=== PATIENT | female | born 1985 | race Hispanic/Latino ===

== ENCOUNTER 2017-06-24 09:05 | Emergency (ER) | payer MEDICAID ==
[2017-06-24 10:08] LABS: #Basophils 0.1 thou/uL (0.0-0.2); #Eosinphils 0.1 thou/uL (0.0-0.7); #Lymphocytes 1.9 thou/uL (1.20-3.40); #Monocytes 0.7 thou/uL (0.11-0.59); #Neutrophils 5.5 thou/uL (1.40-6.50); %Basophils 1.1 % (0.0-1.0); %Eosinophils 1.1 % (0.0-10.0); %Lymphocytes 23.1 % (21.0-51.0); %Monocytes 8.4 % (0.0-10.0); %Neutrophils 66.3 % (42.0-75.0); Hemoglobin 12.5 g/dL (12.0-16.0); Mean Corpuscular Hemoglobin 29.7 pg (27.0-31.0); Mean Corpuscular Volume 90.2 fl (81.0-99.0); Mean Platelet Volume 7.2 fL (7.4-10.4); Platelet Count 294 thou/uL (130-400); RBC Distribution Width 12.5 % (11.5-14.5); Red Blood Cell (RBC) Count 4.21 mill/uL (4.20-5.40); White Blood Cell (WBC) Count 8.3 thou/uL (4.8-10.8)
[2017-06-24 10:18] LABS: Bilirubin Negative (Negative); Blood, Urine Trace (Negative); Clarity Clear (Clear); Glucose, Urine (Dipstick) Negative (Negative); Leukocyte Negative (Negative); Nitrite Negative (Negative); Protein, Urine (Dipstick) Negative (Neg-Trace); Urobilinogen 0.2 mg/dL (0.2-1.0)
[2017-06-24 10:19] LABS: Specific Gravity, Urine 1.006 (1.002-1.036)
[2017-06-24 10:20] LABS: Bacteria/HPF 1+ HPF (None Seen); RBC/HPF 0-3 HPF (0-3); WBC/HPF 0-3 HPF (0-3)
[2017-06-24 10:21] LABS: Pregnancy Test - Urine (BHCG) Negative (Negative); Pregu Control Background? CLEAR/WHITE (CLR/WHITE); Pregu Control Bar Appear? YES (CONTROL BAR); Specific Gravity 1.006 (1.002-1.036)
[2017-06-24 10:25] LABS: ALT (SGPT) 19 U/L (8-55); AST (SGOT) 20 U/L (5-34); Albumin 3.9 g/dL (3.5-5.0); Alkaline Phosphatase 78 U/L (40-150); Anion Gap 16 mmol/L (10-20); BUN (Urea Nitrogen) 13 mg/dL (7.0-18.7); Bilirubin, Total 0.3 mg/dL (0.2-1.2); Calc. Creatinine Clearance 0 mL/min (70-130); Calcium 8.8 mg/dL (7.8-10.44); Carbon Dioxide 20 mmol/L (22-29); Chloride 107 mmol/L (98-107); Estimated GFR-MDRD 87; Globulin 3.7 g/dL (2.4-3.5); Lipase 42 U/L (8-78); Potassium 3.8 mmol/L (3.5-5.1); Protein, Total 7.6 g/dL (6.0-8.3); Sodium 139 mmol/L (136-145)
[2017-06-24 10:27] LABS: CKMB 0.8 ng/mL (0-6.6); Troponin I Less than 0.010 ng/mL (< 0.028)
[2017-06-24 10:31] LABS: Glucose 58 mg/dL (70-105)
--- NOTE | 2017-06-24 11:17 | RAD ---
PA AND LATERAL CHEST: History: Dyspnea. FINDINGS: Heart size is upper limits. Mediastinal structures are unremarkable. The lungs are clear of infiltrat es. No significant bony findings. IMPRESSION: Heart size upper limits of normal. POS: [facility]
--- NOTE | 2017-06-24 11:18 | CT ---
CT CERVICAL SPINE NONCONTRAST: History: Neck pain. Bilateral arm radiculopathy. FINDINGS: No comparison. Vertebral body height and alignment are maintained. Cervicothoracic junction is intact . No acute fracture or dislocation are apparent. No traumatic disc herniation is visible. IMPRESSION: 1. No acute osseous abnormalities are demonstrated. POS: [facility]
== END 2017-06-24 11:30 | disposition home or self-care (01) ==
LOC: MADERS 09:05
DX: E16.2 Hypoglycemia, unspecified (principal); F41.9 Anxiety disorder, unspecified; F32.9 Major depressive disorder, single episode, unspecified; F43.10 Post-traumatic stress disorder, unspecified; Z79.899 Other long term (current) drug therapy
CPT/HCPCS: 71046; 72125; 80053; 81003; 81015; 81025; 82553; 83690; 84484; 85025; 93005

== ENCOUNTER 2017-07-01 07:59 | Outpatient (CLI) | payer MEDICAID ==
--- NOTE | 2017-07-01 10:37 | ULT ---
PELVIC ULTRASOUND WITH DOPLER: (transabdominal, transvaginal, rowley scale, color flow and spectral Doppler) HISTORY: Pelvic pain, dyspareunia. FINDINGS: The uterus measures 7 x 5.4 x 4 cm without focal mass or endometrial fluid. The endometrium measures 9 mm in thickness. The right ovary measures 3 x 2 x 1.7 cm and the left ovary measures 2.6 x 1.8 x 2 cm. Flow is demons trated to both ovaries. No adnexal mass or free fluid in the cul-de-sac is seen. IMPRESSION: Normal exam. POS: [facility]
== END 2017-07-01 08:00 | disposition home or self-care (01) ==
LOC: MADULT 07:59
PROVIDERS: ATTEND Family Medicine
DX: R10.2 Pelvic and perineal pain (principal)
CPT/HCPCS: 76856

== ENCOUNTER 2017-07-25 13:09 | Emergency (ER) | payer MEDICAID ==
[2017-07-25] MEDS ORDERED: AMOXicillin 250 MG CAP ONE (13:44)
[2017-07-25] MEDS ORDERED: Benzonatate 100 MG CAP ONE (13:44)
[2017-07-25] MEDS ORDERED: predniSONE 20 MG TAB ONE (13:44)
== END 2017-07-25 14:10 | disposition home or self-care (01) ==
LOC: MADERS 13:09
DX: J20.9 Acute bronchitis, unspecified (principal); Z79.899 Other long term (current) drug therapy
CPT/HCPCS: 99283; J7506

== ENCOUNTER 2018-03-02 09:01 | Emergency (ER) | payer MEDICAID, SELFPAY ==
[~2018-03-02 09:01] MED LIST: Sodium Chloride 0.9% 1,000 ML BAG ONE
[2018-03-02] MEDS ORDERED: Ondansetron PF 4 MG/2 ML Vial ONE (09:46)
[2018-03-02 10:05] LABS: #Basophils 0.1 thou/uL (0.0-0.2); #Eosinphils 0.1 thou/uL (0.0-0.7); #Lymphocytes 2.4 thou/uL (1.20-3.40); #Monocytes 0.5 thou/uL (0.11-0.59); #Neutrophils 6.9 thou/uL (1.40-6.50); %Eosinophils 0.9 % (0.0-10.0); %Lymphocytes 24.3 % (21.0-51.0); %Monocytes 4.6 % (0.0-10.0); %Neutrophils 69.2 % (42.0-75.0); Mean Corpuscular HGB CONC 33.8 g/dL (32.0-36.0); Mean Corpuscular Hemoglobin 30.5 pg (27.0-31.0); Mean Corpuscular Volume 90.3 fL (78.0-98.0); Mean Platelet Volume 8.3 fL (7.4-10.4); Platelet Count 329 thou/uL (130-400); RBC Distribution Width 12.6 % (11.5-14.5); Red Blood Cell (RBC) Count 4.27 mill/uL (4.20-5.40)
[2018-03-02 10:10] LABS: Bilirubin Negative (Negative); Blood, Urine Negative (Negative); Clarity Clear (Clear); Glucose, Urine (Dipstick) Negative (Negative); Leukocyte Negative (Negative); Nitrite Negative (Negative); Protein, Urine (Dipstick) Negative (Neg-Trace); Urobilinogen 0.2 mg/dL (0.2-1.0)
[2018-03-02 10:12] LABS: Pregnancy Test - Urine (BHCG) Negative (Negative); Pregu Control Background? CLEAR/WHITE (CLR/WHITE); Pregu Control Bar Appear? YES (CONTROL BAR); Specific Gravity 1.006 (1.002-1.036); Specific Gravity, Urine 1.006 (1.002-1.036)
[2018-03-02] MEDS ORDERED: Fentanyl 100 MCG/2 ML VIAL ONE (10:13)
[2018-03-02 10:26] LABS: ALT (SGPT) 15 U/L (8-55); AST (SGOT) 14 U/L (5-34); Albumin 4.4 g/dL (3.5-5.0); Alkaline Phosphatase 77 U/L (40-150); Anion Gap 15 mmol/L (10-20); BUN (Urea Nitrogen) 8 mg/dL (7.0-18.7); Bilirubin, Total 0.2 mg/dL (0.2-1.2); Calc. Creatinine Clearance 0 mL/min (70-130); Calcium 9.4 mg/dL (7.8-10.44); Carbon Dioxide 21 mmol/L (22-29); Chloride 108 mmol/L (98-107); Estimated GFR-MDRD Greater than 90; Globulin 3.3 g/dL (2.4-3.5); Glucose 89 mg/dL (70-105); Potassium 3.5 mmol/L (3.5-5.1); Protein, Total 7.7 g/dL (6.0-8.3); Sodium 140 mmol/L (136-145)
--- NOTE | 2018-03-02 12:15 | CT ---
CONTRAST ENHANCED CT IMAGES ABDOMEN AND PELVIS: Date: 03/02/18 HISTORY: Right lower quadrant pain since yesterday. Patient also has a history of nausea. FINDINGS: Contrast enhanced CT images of abdomen and pelvis obtained after administration of IV and oral contra st. The lung bases are unremarkable, except for some subtle areas of scarring in the posterior aspect of the right lower lobe. No evidence of free intraperitoneal air seen. The liver and spleen are unremarkable. The pancreas is unremarkable. Gallbladder, adrenal glands, and kidneys unremarkable. No evidence of renal parenchymal lesions seen. No evidence of periaortic lymphadenopathy seen. The ureters appear to be decompressed without evidence of distention. Adrenal glands unremarkable. No dilated loops of small bowel seen. The appendix is visualized and appears to be tiny without evidence of significant inflammatory change . Uterus unremarkable. No significant evidence of ovarian abnormality seen. IMPRESSION: Normal contrast enhanced CT images of the abdomen and pelvis. POS: [facility]
== END 2018-03-02 12:10 | disposition home or self-care (01) ==
LOC: MADERS 09:01
DX: R10.33 Periumbilical pain (principal); R10.31 Right lower quadrant pain; F43.10 Post-traumatic stress disorder, unspecified; F41.9 Anxiety disorder, unspecified; F32.9 Major depressive disorder, single episode, unspecified; F17.210 Nicotine dependence, cigarettes, uncomplicated; Z79.01 Long term (current) use of anticoagulants; Z79.899 Other long term (current) drug therapy
CPT/HCPCS: 74177; 80053; 81003; 81025; 85025; 96374; 96375; 99406; J2405; J3010; J7050

== ENCOUNTER 2019-02-07 11:13 | Emergency (ER) | payer MEDICAID, SELFPAY ==
[2019-02-07] MEDS ORDERED: Aspirin Chewable 81 MG TAB ONE (11:50)
[2019-02-07] MEDS ORDERED: Metoprolol Tartrate 5 MG/5 ML VIAL ONE (11:50)
[2019-02-07 11:55] LABS: Pregnancy Test - Urine (BHCG) Negative (Negative); Pregu Control Background? CLEAR/WHITE (CLR/WHITE); Pregu Control Bar Appear? YES (CONTROL BAR)
[2019-02-07 11:55] LABS: #Basophils 0.1 thou/uL (0.0-0.2); #Eosinphils 0.1 thou/uL (0.0-0.7); #Monocytes 0.4 thou/uL (0.11-0.59); #Neutrophils 5.1 thou/uL (1.40-6.50); %Eosinophils 1.2 % (0.0-10.0); %Lymphocytes 26.1 % (21.0-51.0); %Monocytes 5.5 % (0.0-10.0); %Neutrophils 66.1 % (42.0-75.0); Hemoglobin 12.7 g/dL (12.0-16.0); Mean Corpuscular HGB CONC 34.5 g/dL (32.0-36.0); Mean Corpuscular Hemoglobin 30.7 pg (27.0-31.0); Mean Corpuscular Volume 88.9 fL (78.0-98.0); Mean Platelet Volume 8.6 fL (7.4-10.4); Platelet Count 254 thou/uL (130-400); RBC Distribution Width 11.6 % (11.5-14.5); Red Blood Cell (RBC) Count 4.13 mill/uL (4.20-5.40); White Blood Cell (WBC) Count 7.7 thou/uL (4.8-10.8)
[2019-02-07 11:56] LABS: Bilirubin Negative (Negative); Blood, Urine Negative (Negative); Clarity Clear (Clear); Glucose, Urine (Dipstick) Negative (Negative); Leukocyte Negative (Negative); Nitrite Negative (Negative); Protein, Urine (Dipstick) Negative (Neg-Trace); Urobilinogen 0.2 mg/dL (Less than 2)
--- NOTE | 2019-02-07 11:57 | RAD ---
CHEST 1 VIEW: Date: 02/07/19 HISTORY: Chest pain. COMPARISON: None. FINDINGS: Lungs are clear. No pneumothorax or effusion. Cardiac silhouette and mediastinal contours within norm al limits. IMPRESSION: No acute intrathoracic abnormality. POS: [facility]
[2019-02-07] MEDS ORDERED: Lorazepam 2 MG/ML VIAL ONE (12:03)
[2019-02-07 12:08] LABS: ALT (SGPT) 10 U/L (8-55); AST (SGOT) 11 U/L (5-34); Albumin 4.2 g/dL (3.5-5.0); Alkaline Phosphatase 60 U/L (40-110); Anion Gap 13 mmol/L (10-20); BUN (Urea Nitrogen) 10 mg/dL (7.0-18.7); Bilirubin, Total 0.3 mg/dL (0.2-1.2); Calc. Creatinine Clearance 0 mL/min (70-130); Carbon Dioxide 23 mmol/L (22-29); Chloride 108 mmol/L (98-107); Estimated GFR-MDRD Greater than 90; Globulin 3.1 g/dL (2.4-3.5); Glucose 86 mg/dL (70-105); Lipase 56 U/L (8-78); Protein, Total 7.3 g/dL (6.0-8.3); Sodium 141 mmol/L (136-145)
[2019-02-07 12:09] LABS: THC/Cannabinoid Screen Detected (NotDetected)
[2019-02-07 12:10] LABS: Amphetamine Not Detected (NotDetected); Barbiturates Screen Not Detected (NotDetected); Benzodiazepine Screen Detected (NotDetected); Cocaine Metabolite Screen Not Detected (NotDetected); Medtox Control Line Valid? VALID (VALID); Methadone Not Detected (NotDetected); Methamphetamine Not Detected (NotDetected); Opiate Screen Not Detected (NotDetected); Oxycodone Screen Not Detected (NotDetected); Phencyclidine (PCP) Not Detected (NotDetected); Tricyclic Screen Not Detected (NotDetected)
[2019-02-07 13:26] LABS: Potassium 2.9 mmol/L (3.5-5.1)
== END 2019-02-07 13:15 | disposition home or self-care (01) ==
LOC: MADERS 11:13
DX: F41.0 Panic disorder [episodic paroxysmal anxiety] (principal); F32.9 Major depressive disorder, single episode, unspecified; F43.10 Post-traumatic stress disorder, unspecified; F17.210 Nicotine dependence, cigarettes, uncomplicated
CPT/HCPCS: 71045; 80053; 80306; 81003; 81025; 83690; 84443; 84484; 85025; 93005; 94760; 96374; 96375; J2060

== ENCOUNTER 2019-02-24 17:46 | Emergency (ER) | payer SELFPAY ==
[2019-02-24] MEDS ORDERED: Clindamycin 150 MG CAP ONE ×2 (21:15→21:23)
== END 2019-02-24 21:40 | disposition home or self-care (01) ==
LOC: MADERS 17:46
DX: L01.00 Impetigo, unspecified (principal); F32.9 Major depressive disorder, single episode, unspecified; F41.9 Anxiety disorder, unspecified; F43.10 Post-traumatic stress disorder, unspecified; F17.210 Nicotine dependence, cigarettes, uncomplicated
CPT/HCPCS: 99282

== ENCOUNTER 2019-06-10 10:49 | Emergency (ER) | payer SELFPAY ==
[2019-06-10 11:20] LABS: #Eosinphils 0.2 thou/uL (0.0-0.7); #Lymphocytes 1.7 thou/uL (1.20-3.40); #Monocytes 0.5 thou/uL (0.11-0.59); #Neutrophils 4.5 thou/uL (1.40-6.50); %Basophils 0.7 % (0.0-1.0); %Eosinophils 2.5 % (0.0-10.0); %Lymphocytes 24.6 % (21.0-51.0); %Monocytes 7.4 % (0.0-10.0); %Neutrophils 64.9 % (42.0-75.0); Hemoglobin 11.9 g/dL (12.0-16.0); Mean Corpuscular HGB CONC 32.8 g/dL (32.0-36.0); Mean Corpuscular Hemoglobin 30.4 pg (27.0-31.0); Mean Corpuscular Volume 92.8 fL (78.0-98.0); Mean Platelet Volume 7.6 fL (7.4-10.4); Platelet Count 242 thou/uL (130-400); RBC Distribution Width 11.7 % (11.5-14.5); Red Blood Cell (RBC) Count 3.91 mill/uL (4.20-5.40); White Blood Cell (WBC) Count 6.9 thou/uL (4.8-10.8)
[2019-06-10 11:38] LABS: ALT (SGPT) 12 U/L (8-55); AST (SGOT) 10 U/L (5-34); Acetaminophen Less than 6.0 mcg/mL (10.0-30.0); Alcohol Less than 10 mg/dL (Less than 10); Alkaline Phosphatase 59 U/L (40-110); Anion Gap 12 mmol/L (10-20); BUN (Urea Nitrogen) 4 mg/dL (7.0-18.7); Bilirubin, Total 0.3 mg/dL (0.2-1.2); Calc. Creatinine Clearance 0 mL/min (70-130); Calcium 8.4 mg/dL (7.8-10.44); Carbon Dioxide 24 mmol/L (22-29); Chloride 107 mmol/L (98-107); Estimated GFR-MDRD Greater than 90; Globulin 2.8 g/dL (2.4-3.5); Glucose 82 mg/dL (70-105); Potassium 3.9 mmol/L (3.5-5.1); Protein, Total 6.8 g/dL (6.0-8.3); Salicylate Less than 8.0 mg/dL (15.0-30.0); Sodium 139 mmol/L (136-145)
[2019-06-10 12:04] LABS: Bilirubin Negative (Negative); Blood, Urine Negative (Negative); Clarity Clear (Clear); Glucose, Urine (Dipstick) Negative (Negative); Leukocyte Negative (Negative); Nitrite Negative (Negative); Protein, Urine (Dipstick) Negative (Neg-Trace); Urobilinogen 0.2 mg/dL (Less than 2)
[2019-06-10 12:06] LABS: Pregnancy Test - Urine (BHCG) Negative (Negative); Pregu Control Background? CLEAR/WHITE (CLR/WHITE); Pregu Control Bar Appear? YES (CONTROL BAR); Specific Gravity 1.015 (1.002-1.036)
[2019-06-10 12:09] LABS: Amphetamine Not Detected (NotDetected); Barbiturates Screen Not Detected (NotDetected); Benzodiazepine Screen Detected (NotDetected); Cocaine Metabolite Screen Not Detected (NotDetected); Methadone Not Detected (NotDetected); Methamphetamine Not Detected (NotDetected); Opiate Screen Not Detected (NotDetected); Oxycodone Screen Not Detected (NotDetected); Phencyclidine (PCP) Not Detected (NotDetected); THC/Cannabinoid Screen Detected (NotDetected); Tricyclic Screen Detected (NotDetected)
[2019-06-10 12:10] LABS: Medtox Control Line Valid? VALID (VALID)
== END 2019-06-10 13:16 | disposition home or self-care (01) ==
LOC: MADERS 10:49
DX: T40.2X1A Poisoning by other opioids, accidental (unintentional), initial encounter (principal); F17.210 Nicotine dependence, cigarettes, uncomplicated; F41.9 Anxiety disorder, unspecified; F43.10 Post-traumatic stress disorder, unspecified; Z79.01 Long term (current) use of anticoagulants; Z79.899 Other long term (current) drug therapy
CPT/HCPCS: 36415; 80053; 80306; 80307; 81003; 81025; 85025; 93005; 94760; 96360

== ENCOUNTER 2020-01-11 12:29 | Emergency (ER) | payer MEDICAID, OTHER ==
[~2020-01-11 12:29] MED LIST changes: +Iopamidol 370 76% 125 ML VIAL FS ONE
[2020-01-11 13:10] LABS: #Basophils 0.1 thou/uL (0.0-0.2); #Eosinphils 0.2 thou/uL (0.0-0.7); #Lymphocytes 2.9 thou/uL (1.20-3.40); #Monocytes 0.6 thou/uL (0.11-0.59); #Neutrophils 3.8 thou/uL (1.40-6.50); %Basophils 1.7 % (0.0-1.0); %Eosinophils 2.1 % (0.0-10.0); %Lymphocytes 38.8 % (21.0-51.0); %Monocytes 7.9 % (0.0-10.0); %Neutrophils 49.4 % (42.0-75.0); Hemoglobin 12.3 g/dL (12.0-16.0); Mean Corpuscular HGB CONC 34.8 g/dL (32.0-36.0); Mean Platelet Volume 9.3 fL (7.4-10.4); Platelet Count 285 thou/uL (130-400); RBC Distribution Width 12.1 % (11.5-14.5); Red Blood Cell (RBC) Count 3.84 mill/uL (4.20-5.40); White Blood Cell (WBC) Count 7.6 thou/uL (4.8-10.8)
[2020-01-11 13:21] LABS: BHCG - Serum Negative (NEGATIVE); Pregs Control Background? CLEAR/WHITE (CLR/WHITE); Pregs Control Bar Appear? YES (CONTROL BAR)
[2020-01-11 13:27] LABS: ALT (SGPT) 8 U/L (8-55); AST (SGOT) 9 U/L (5-34); Albumin 4.2 g/dL (3.5-5.0); Alkaline Phosphatase 51 U/L (40-110); Anion Gap 15 mmol/L (10-20); BUN (Urea Nitrogen) 7 mg/dL (7.0-18.7); Bilirubin, Total 0.2 mg/dL (0.2-1.2); CK (CPK) 38 U/L (29-168); Calc. Creatinine Clearance 0 mL/min (70-130); Calcium 8.9 mg/dL (7.8-10.44); Carbon Dioxide 26 mmol/L (22-29); Chloride 105 mmol/L (98-107); Estimated GFR-MDRD Greater than 90; Globulin 2.6 g/dL (2.4-3.5); Glucose 78 mg/dL (70-105); Lipase 100 U/L (8-78); Potassium 3.7 mmol/L (3.5-5.1); Protein, Total 6.8 g/dL (6.0-8.3); Sodium 142 mmol/L (136-145)
[2020-01-11] MEDS ORDERED: Lorazepam 2 MG/ML VIAL ONE (13:32)
[2020-01-11] MEDS ORDERED: Acetaminophen 500 MG TAB ONE (13:32)
--- NOTE | 2020-01-11 13:56 | CT ---
CT BRAIN WITHOUT CONTRAST: 01/11/20 HISTORY: Seizures, headache, altered mental status. FINDINGS: No evidence of infarct, hemorrhage, midline shift or abnormal extra-axial fluid collections are seen. The ventricular size is normal and the basilar cisterns are patent. The bony calvarium is intact. T here is mild mucosal disease in the right posterior ethmoid air cells. IMPRESSION: No CT evidence of acute intracranial process. POS: [facility]
--- NOTE | 2020-01-11 14:03 | CT ---
CTA CHEST WITH IV CONTRAST AND 3D POST PROCESSING CT ABDOMEN WITH IV CONTRAST AND 3D POST PROCESSING CTA AORTA WITH IV CONTRAST AND 3D POST PROCESSING: HISTORY: Chest pain, back pain, and left-sided abdominal pain. FINDINGS: There is good contrast opacification of the thoracoabdominal aorta without aneurysm or dissection. T he pulmonary arteries are well opacified without filling defect to suggest pulmonary embolism. No pleural or pericardial effusions are seen. No pneumothoraces or focal areas of consolidation are noted. There is a 4 mm perifissural nodule on the left. No calcified gallstones are seen. No free air or free fluid is noted in the abdomen. Evaluate of the solid organs is suboptimal due to imaging during the arterial phase of contrast admin istration. No definite solid organ abnormalities are identified within the limitations. Bony struct ures are unremarkable. IMPRESSION: No CT evidence of aortic dissection or pulmonary embolism. POS: [facility]
--- NOTE | 2020-01-11 14:11 | RAD ---
EXAM: Single view of the chest HISTORY: Chest pain COMPARISON: 02/07/2019 FINDINGS: Single view of the chest shows a normal sized cardiomediastinal silhouette. There is no cristina dence of consolidation, mass, or pleural effusion. No acute osseous abnormality. Bilateral nipple shadows are incidentally seen. IMPRESSION: No evidence of acute cardiopulmonary disease
[2020-01-11 14:45] LABS: Bilirubin Negative (Negative); Blood, Urine Negative (Negative); Clarity Clear (Clear); Glucose, Urine (Dipstick) Negative (Negative); Ketone, Urine Negative (Negative); Leukocyte Negative (Negative); Nitrite Negative (Negative); Protein, Urine (Dipstick) Negative (Neg-Trace); Specific Gravity, Urine 1.015 (1.005-1.030); Urobilinogen 0.2 mg/dL (Less than 2)
[2020-01-11 14:52] LABS: Amphetamine Not Detected (NotDetected); Barbiturates Screen Not Detected (NotDetected); Benzodiazepine Screen Detected (NotDetected); Cocaine Metabolite Screen Not Detected (NotDetected); Medtox Control Line Valid? VALID (VALID); Methadone Not Detected (NotDetected); Methamphetamine Not Detected (NotDetected); Opiate Screen Not Detected (NotDetected); Oxycodone Screen Not Detected (NotDetected); Phencyclidine (PCP) Not Detected (NotDetected); THC/Cannabinoid Screen Detected (NotDetected); Tricyclic Screen Not Detected (NotDetected)
[2020-01-11 14:58] LABS: Acetaminophen Less than 6.0 mcg/mL (10.0-30.0); Alcohol Less than 10 mg/dL (Less than 10); Salicylate Less than 8.0 mg/dL (15.0-30.0)
[2020-01-11] MEDS ORDERED: Ketorolac Tromethamine 30 MG/ML VIAL ONE (15:03)
[2020-01-11] MEDS ORDERED: Aspirin Chewable 81 MG TAB ONE (15:03)
[2020-01-11] MEDS ORDERED: Mag-Al Plus 1200 MG/1200 MG/120 MG/30 ML UDCUP ONE (15:06)
[2020-01-11] MEDS ORDERED: Lidocaine Viscous Sol 2% 15 ml UD Cup ONE (15:06)
== END 2020-01-11 18:18 | disposition short-term general hospital (02) ==
LOC: MADERS 12:29
DX: R07.9 Chest pain, unspecified (principal); F32.9 Major depressive disorder, single episode, unspecified; F41.9 Anxiety disorder, unspecified; F17.210 Nicotine dependence, cigarettes, uncomplicated; Z79.899 Other long term (current) drug therapy
CPT/HCPCS: 70450; 71045; 71275; 72191; 74175; 80053; 80306; 80307; 81003; 82550; 83690; 84484; 84703; 85025; 85379; 93005; 96361; 96374; 96375; J1885; J2060; J7050; Q9967

== ENCOUNTER 2020-03-16 09:03 | Emergency (ER) | payer OTHER ==
[2020-03-16] MEDS ORDERED: Ketorolac Tromethamine 30 MG/ML VIAL ONE (09:41)
[2020-03-16] MEDS ORDERED: Sodium Chloride 0.9% 1,000 ML ONE (09:41)
[2020-03-16 09:45] LABS: Bilirubin Negative (Negative); Blood, Urine Negative (Negative); Clarity Clear (Clear); Glucose, Urine (Dipstick) Negative (Negative); Ketone, Urine Negative (Negative); Leukocyte Negative (Negative); Nitrite Negative (Negative); Protein, Urine (Dipstick) Negative (Neg-Trace); Urobilinogen 0.2 mg/dL (Less than 2)
[2020-03-16 09:56] LABS: Pregnancy Test - Urine (BHCG) Negative (Negative)
[2020-03-16 09:57] LABS: Pregu Control Background? CLEAR/WHITE (CLR/WHITE); Pregu Control Bar Appear? YES (CONTROL BAR)
[2020-03-16 10:26] LABS: #Basophils 0.1 thou/uL (0.0-0.2); #Eosinphils 0.2 thou/uL (0.0-0.7); #Lymphocytes 2.6 thou/uL (1.20-3.40); #Monocytes 0.6 thou/uL (0.11-0.59); #Neutrophils 6.6 thou/uL (1.40-6.50); %Eosinophils 1.6 % (0.0-10.0); %Lymphocytes 25.6 % (21.0-51.0); %Monocytes 6.2 % (0.0-10.0); %Neutrophils 65.6 % (42.0-75.0); Hemoglobin 11.9 g/dL (12.0-16.0); Mean Corpuscular HGB CONC 33.4 g/dL (32.0-36.0); Mean Corpuscular Volume 95.6 fL (78.0-98.0); Mean Platelet Volume 8.5 fL (7.4-10.4); Platelet Count 262 thou/uL (130-400); RBC Distribution Width 11.6 % (11.5-14.5); Red Blood Cell (RBC) Count 3.71 mill/uL (4.20-5.40)
[2020-03-16 10:46] LABS: ALT (SGPT) 16 U/L (8-55); AST (SGOT) 14 U/L (5-34); Albumin 3.8 g/dL (3.5-5.0); Alkaline Phosphatase 53 U/L (40-110); Anion Gap 14 mmol/L (10-20); BUN (Urea Nitrogen) 7 mg/dL (7.0-18.7); Bilirubin, Total 0.2 mg/dL (0.2-1.2); CK (CPK) 49 U/L (29-168); Calc. Creatinine Clearance 0 mL/min (70-130); Calcium 8.7 mg/dL (7.8-10.44); Carbon Dioxide 24 mmol/L (22-29); Chloride 108 mmol/L (98-107); Estimated GFR-MDRD Greater than 90; Globulin 2.6 g/dL (2.4-3.5); Glucose 96 mg/dL (70-105); Potassium 3.3 mmol/L (3.5-5.1); Protein, Total 6.4 g/dL (6.0-8.3); Sodium 143 mmol/L (136-145)
== END 2020-03-16 11:35 | disposition home or self-care (01) ==
LOC: MADERS 09:03
DX: R10.11 Right upper quadrant pain (principal); R10.12 Left upper quadrant pain; R07.9 Chest pain, unspecified; F43.10 Post-traumatic stress disorder, unspecified; F31.9 Bipolar disorder, unspecified; F41.9 Anxiety disorder, unspecified; Z79.899 Other long term (current) drug therapy; Z79.82 Long term (current) use of aspirin
CPT/HCPCS: 80053; 81003; 81025; 82550; 84484; 85025; 93005; 94760; 96374; J1885; J7050

== ENCOUNTER 2020-03-27 12:08 | Emergency (ER) | payer OTHER ==
[2020-03-27] MEDS ORDERED: Ondansetron ODT 4 MG TAB ONE (12:54)
[2020-03-27] MEDS ORDERED: cefTRIAXone\\ROCEPHIN 1 GM VIAL ONE (12:54)
[2020-03-27] MEDS ORDERED: Lidocaine 1% 20 ML MDV ONE (12:54)
[2020-03-27] MEDS ORDERED: Ketorolac Tromethamine 30 MG/ML VIAL ONE (12:54)
== END 2020-03-27 13:51 | disposition home or self-care (01) ==
LOC: MADERS 12:08
DX: K04.7 Periapical abscess without sinus (principal); R51.9 Headache, unspecified; F31.9 Bipolar disorder, unspecified; F43.10 Post-traumatic stress disorder, unspecified; F41.9 Anxiety disorder, unspecified; Z79.899 Other long term (current) drug therapy
CPT/HCPCS: 96372; 99282; J0696; J1885; Q0162

== ENCOUNTER 2020-03-31 11:54 | Emergency (ER) | payer OTHER ==
[~2020-03-31 11:54] MED LIST changes: +Iopamidol 370 76% 100 ML VIAL ONE; -Iopamidol 370 76% 125 ML VIAL FS ONE; -Sodium Chloride 0.9% 1,000 ML BAG ONE
[2020-03-31] MEDS ORDERED: Ketorolac Tromethamine 30 MG/ML VIAL ONE (12:45)
[2020-03-31] MEDS ORDERED: Sodium Chloride 0.9% 1,000 ML ONE (12:45)
[2020-03-31] MEDS ORDERED: Ondansetron PF 4 MG/2 ML Vial ONE (12:45)
[2020-03-31 13:07] LABS: Bilirubin Negative (Negative); Blood, Urine Negative (Negative); Clarity Clear (Clear); Glucose, Urine (Dipstick) Negative (Negative); Ketone, Urine 15 mg/dL (Negative); Leukocyte Negative (Negative); Nitrite Negative (Negative); Protein, Urine (Dipstick) Negative (Neg-Trace); Urobilinogen 0.2 mg/dL (Less than 2)
[2020-03-31 13:08] LABS: Pregnancy Test - Urine (BHCG) Negative (Negative); Pregu Control Background? CLEAR/WHITE (CLR/WHITE); Pregu Control Bar Appear? YES (CONTROL BAR)
[2020-03-31 13:11] LABS: #Basophils 0.1 thou/uL (0.0-0.2); #Lymphocytes 1.5 thou/uL (1.20-3.40); #Monocytes 0.4 thou/uL (0.11-0.59); #Neutrophils 9.2 thou/uL (1.40-6.50); %Basophils 0.5 % (0.0-1.0); %Eosinophils 0.1 % (0.0-10.0); %Lymphocytes 13.7 % (21.0-51.0); %Monocytes 3.9 % (0.0-10.0); %Neutrophils 81.7 % (42.0-75.0); Hemoglobin 14.8 g/dL (12.0-16.0); Mean Corpuscular HGB CONC 32.8 g/dL (32.0-36.0); Mean Corpuscular Hemoglobin 31.1 pg (27.0-31.0); Mean Corpuscular Volume 94.9 fL (78.0-98.0); Mean Platelet Volume 7.3 fL (7.4-10.4); Platelet Count 486 thou/uL (130-400); RBC Distribution Width 11.3 % (11.5-14.5); Red Blood Cell (RBC) Count 4.75 mill/uL (4.20-5.40); White Blood Cell (WBC) Count 11.3 thou/uL (4.8-10.8)
[2020-03-31 13:16] LABS: ALT (SGPT) 14 U/L (8-55); AST (SGOT) 14 U/L (5-34); Albumin 5.3 g/dL (3.5-5.0); Alkaline Phosphatase 77 U/L (40-110); Anion Gap 23 mmol/L (10-20); BUN (Urea Nitrogen) 13 mg/dL (7.0-18.7); Bilirubin, Total 0.4 mg/dL (0.2-1.2); Calc. Creatinine Clearance 0 mL/min (70-130); Calcium 10.3 mg/dL (7.8-10.44); Carbon Dioxide 22 mmol/L (22-29); Chloride 97 mmol/L (98-107); Estimated GFR-MDRD 89; Globulin 4.5 g/dL (2.4-3.5); Glucose 91 mg/dL (70-105); Lipase 44 U/L (8-78); Potassium 3.6 mmol/L (3.5-5.1); Protein, Total 9.8 g/dL (6.0-8.3); Sodium 138 mmol/L (136-145)
--- NOTE | 2020-03-31 13:41 | RAD ---
Chest one view HISTORY: Chest pain. COMPARISON: 01/11/2020. FINDINGS: Cardiac silhouette and pulmonary vasculature are unremarkable. Mediastinum is midline. No c onfluent airspace consolidation or evidence of pneumothorax. IMPRESSION : No abnormalities are demonstrated.
--- NOTE | 2020-03-31 14:07 | CT ---
CT abdomen and pelvis with IV contrast HISTORY: Right lower quadrant pain. FINDINGS: The lung bases are clear. The liver, spleen, kidneys, adrenal glands, and pancreas have a n ormal CT appearance. Appendix normal. No evidence of bowel obstruction or inflammation. IMPRESSION : No abnormalities are demonstrated.
[2020-04-01 18:38] LABS: SARS-CoV-2 MS2 Positive; SARS-CoV-2 N Gene Negative; SARS-CoV-2 S Gene Negative; SARS-CoV-2 by NAA Not Detected (NotDetected); SARS-CoV-2 orf1ab Negative
== END 2020-03-31 14:50 | disposition home or self-care (01) ==
LOC: MADERS 11:54
DX: R10.31 Right lower quadrant pain (principal); Z20.828 Contact with and (suspected) exposure to other viral communicable diseases; F43.10 Post-traumatic stress disorder, unspecified; F41.9 Anxiety disorder, unspecified; F31.9 Bipolar disorder, unspecified; Z79.899 Other long term (current) drug therapy
CPT/HCPCS: 36415; 71045; 74177; 80053; 81003; 81025; 83605; 83690; 84484; 85025; 87635; 96374; 96375; J1885; J2405; J7050; Q9967; U0003

== ENCOUNTER 2020-04-21 16:11 | Emergency (ER) | payer OTHER ==
[2020-04-21] MEDS ORDERED: Ketorolac Tromethamine 30 MG/ML VIAL ONE (16:30)
[2020-04-21] MEDS ORDERED: Clindamycin 150 MG CAP ONE (16:30)
== END 2020-04-21 16:45 | disposition home or self-care (01) ==
LOC: MADERS 16:11
DX: K04.7 Periapical abscess without sinus (principal); K02.9 Dental caries, unspecified; Z79.899 Other long term (current) drug therapy
CPT/HCPCS: 96372; 99282; J1885

== ENCOUNTER 2020-08-06 13:58 | Emergency (ER) | payer OTHER ==
[~2020-08-06 13:58] MED LIST changes: -Iopamidol 370 76% 100 ML VIAL ONE; +Sodium Chloride 0.9% 1,000 ML BAG ONE
[2020-08-06 15:40] LABS: #Basophils 0.1 thou/uL (0.0-0.2); #Eosinphils 0.1 thou/uL (0.0-0.7); #Monocytes 0.6 thou/uL (0.11-0.59); #Neutrophils 5.2 thou/uL (1.40-6.50); %Basophils 1.2 % (0.0-1.0); %Eosinophils 1.6 % (0.0-10.0); %Lymphocytes 25.5 % (21.0-51.0); %Monocytes 6.9 % (0.0-10.0); Hemoglobin 11.9 g/dL (12.0-16.0); Mean Corpuscular HGB CONC 33.2 g/dL (32.0-36.0); Mean Corpuscular Hemoglobin 31.6 pg (27.0-31.0); Mean Corpuscular Volume 95.1 fL (78.0-98.0); Mean Platelet Volume 9.6 fL (7.4-10.4); Platelet Count 227 thou/uL (130-400); RBC Distribution Width 11.9 % (11.5-14.5); Red Blood Cell (RBC) Count 3.78 mill/uL (4.20-5.40)
[2020-08-06 15:54] LABS: ALT (SGPT) 17 U/L (8-55); AST (SGOT) 15 U/L (5-34); Albumin 3.9 g/dL (3.5-5.0); Alkaline Phosphatase 55 U/L (40-110); Anion Gap 13 mmol/L (10-20); BUN (Urea Nitrogen) 7 mg/dL (7.0-18.7); Bilirubin, Total 0.2 mg/dL (0.2-1.2); Calc. Creatinine Clearance 0 mL/min (70-130); Calcium 8.9 mg/dL (7.8-10.44); Carbon Dioxide 25 mmol/L (22-29); Chloride 106 mmol/L (98-107); Globulin 2.7 g/dL (2.4-3.5); Glucose 80 mg/dL (70-105); Potassium 3.7 mmol/L (3.5-5.1); Protein, Total 6.6 g/dL (6.0-8.3); Sodium 140 mmol/L (136-145)
[2020-08-06 15:55] LABS: CK (CPK) 381 U/L (29-168); CRP (Inflammatory) Less than 0.50 mg/dL (= or < 0.5)
[2020-08-06 16:09] LABS: Pregnancy Test - Urine (BHCG) Negative (Negative)
[2020-08-06 16:10] LABS: Bilirubin Negative (Negative); Blood, Urine Negative (Negative); Clarity Clear (Clear); Glucose, Urine (Dipstick) Negative (Negative); Ketone, Urine Negative (Negative); Leukocyte Negative (Negative); Nitrite Negative (Negative); Pregu Control Background? CLEAR/WHITE (CLR/WHITE); Pregu Control Bar Appear? YES (CONTROL BAR); Protein, Urine (Dipstick) Negative (Neg-Trace); Urobilinogen 0.2 mg/dL (Less than 2)
[2020-08-06 16:17] LABS: Benzodiazepine Screen Detected (NotDetected); Opiate Screen Detected (NotDetected); THC/Cannabinoid Screen Detected (NotDetected); Tricyclic Screen Detected (NotDetected)
[2020-08-06 16:18] LABS: Amphetamine Not Detected (NotDetected); Barbiturates Screen Not Detected (NotDetected); Cocaine Metabolite Screen Not Detected (NotDetected); Medtox Control Line Valid? VALID (VALID); Methadone Not Detected (NotDetected); Methamphetamine Not Detected (NotDetected); Oxycodone Screen Not Detected (NotDetected); Phencyclidine (PCP) Not Detected (NotDetected)
== END 2020-08-06 17:05 | disposition home or self-care (01) ==
LOC: MADERS 13:58
DX: E86.0 Dehydration (principal); E86.1 Hypovolemia; F41.9 Anxiety disorder, unspecified; F19.10 Other psychoactive substance abuse, uncomplicated; Z79.899 Other long term (current) drug therapy
CPT/HCPCS: 36415; 80053; 80306; 80307; 81003; 81025; 82550; 85025; 86140; 99283; J7050